=== PATIENT | male | born 1970 | race Caucasian/White ===

== ENCOUNTER 2018-07-27 07:10 | Day surgery (SDC) | payer BC ==
--- NOTE | 2018-07-20 22:59 | HP ---
CC: FORTUNATO Pires * HISTORY AND PHYSICAL: DATE OF PLANNED ADMISSION AND SURGERY: 07/27/18 HISTORY OF PRESENT ILLNESS: Mr. Hoang is a 48-year-old white male, who is admitted with a large symptomatic right hydrocele for surgical repair. Mr. Hoang noted right scrotal swelling for the last several years. More recently, it has become larger and was interfering with his physical activities. He was evaluated by Ms. Burns, who referred him for evaluation. He had a scrotal ultrasound, which showed a large right hydrocele and a small left hydrocele. Recently, he became significantly more symptomatic and with the hydrocele becoming larger and interfering with his physical activities. Reexamination in the office showed that the hydrocele has gotten larger and has become more tense. The patient wanted to proceed with surgical repair. PAST MEDICAL HISTORY AND SYSTEM REVIEW: He is in excellent health. There is no history of any inguinal or scrotal trauma or surgery. MEDICATIONS: He is on no chronic medications. ALLERGIES: He denies any allergies to medications. PHYSICAL EXAMINATION GENERAL: Pleasant and healthy-looking white male. VITAL SIGNS: Blood pressure 120/70, pulse of 70. LUNGS: Clear. HEART: Regular and rhythmic. No murmurs. ABDOMEN: Soft. No masses, no tenderness, and no CVA tenderness. EXTERNAL GENITALIA: He is circumcised. There are no penile lesions. The left testis feels normal. No left inguinal hernias noted. There is a 13- to 15-cm tense tender right hydrocele that is extending into the inguinal area. There is no associated inguinal hernia noted. IMPRESSION: Symptomatic right hydrocele. PLAN: Right hydrocelectomy. I discussed the operation in detail with the patient. Some of the potential complications including infection and hematoma were discussed. The patient understands that it is common to have several weeks of scrotal swelling following the surgery. All his questions were answered. [id number]/[facility] #: [id number] JOHANNY
[~2018-07-27 07:10] MED LIST: Buffered Lidocaine 0.9% SYRIN* 5 ML/SYR SYRINGE INTRADERM ONE; Lactated Ringers 1000 ML Bag* 1,000 ML IV SCH; Sodium Citrate/Citric Acid* 15 ML UDC PO ONE
[2018-07-27] MEDS ORDERED: Sodium Citrate/Citric Acid* 15 ML UDC ONE (08:01)
[2018-07-27] MEDS ORDERED: ceFAZolin 2 GM PREMIX in ORs 2 GM/50 ML BAG IVPB ONE (08:02)
[2018-07-27] MEDS ORDERED: Bupivacaine 0.5%* 50 ML VIAL ONE (09:14)
[2018-07-27] MEDS ORDERED: Midazolam* 1 MG/ML 2 ML VIAL (2 MG) ONE (09:30)
[2018-07-27] MEDS ORDERED: fentaNYL* 50 MCG/ML 2 ML VIAL (100 MCG VIAL) ONE ×2 (09:30→11:09)
[2018-07-27] MEDS ORDERED: Propofol* 10 MG/ML 20 ML BTL ONE (09:31)
[2018-07-27] MEDS ORDERED: Lidocaine 2% PF * 5 ML VIAL ONE (09:31)
[2018-07-27] MEDS ORDERED: Ondansetron INJ* 2 MG/ML VIAL IV PRN (10:02)
[2018-07-27] MEDS ORDERED: Naloxone* 0.4 MG/ML 1 ML VIAL IV PRN (10:02)
[2018-07-27] MEDS ORDERED: Ketorolac INJ* 30 MG/ML 1 ML VIAL IV PRN (10:02)
[2018-07-27] MEDS ORDERED: Ketorolac INJ* 30 MG/ML 1 ML VIAL ONE (11:09)
[2018-07-27] MEDS: fentaNYL* 50 MCG/ML 2 ML VIAL (100 MCG VIAL) IV PRN ×2 (11:13→11:42)
[2018-07-27] MEDS ORDERED: oxyCODONE/Acetamin 5/325 MG* TAB ONE (11:45)
--- NOTE | 2018-07-27 12:08 | OP ---
CC: FORTUNATO Pires* OPERATIVE REPORT: DATE OF OPERATION: 07/27/18 - [facility] DATE OF : 74 SURGEON: Thomas Nice MD ANESTHESIOLOGIST: Dr. Shahriar Dumont. ANESTHESIA: General. PRE-OP DIAGNOSIS: Right hydrocele. POST-OP DIAGNOSIS: Right hydrocele. OPERATIVE PROCEDURE: Right hydrocelectomy. INDICATION FOR PROCEDURE: Mr. Hoang is a 48-year-old white male, who noted progressive right scrotal swelling over the last several years. Recently, the hydrocele became symptomatic and interfering with his physical activities. After discussing the options of management, the patient decided to proceed with surgical repair. PATHOLOGY: After scrotal exploration, there was a hydrocele measuring about 12 cm in diameter. It contained about 150 cc of straw-colored hydrocele fluid. The hydrocele sac looked otherwise normal without any lesions. The testicle looked and felt normal without any masses. There was no hernia noted. DESCRIPTION OF PROCEDURE: After successful general anesthesia, the patient was placed in the supine position and was prepped and draped for scrotal surgery. A transverse incision was carried over the anterior mid right hemiscrotum and was deepened through the dartos muscle. The hydrocele sac was then dissected from the overlying scrotal wall and was delivered through the incision. The hydrocele sac was then opened and the fluid was drained. The testis was inspected. The hydrocele sac was partially trimmed. The sac was then everted and approximated to itself using a running locking sutures of 4-0 Vicryl achieving very good hemostasis. Additional hemostasis was carried. The testis was then placed within the scrotal cavity. The cavity was irrigated with saline. A Lawrence drain was left in the scrotal cavity and brought out through a separate stab wound incision in the dependent part of the scrotum . After making sure there was very good hemostasis, the scrotal incision was closed using running 4-0 Vicryl for the dartos muscle and interrupted 4-0 chromic suture for the skin. A total of 8 cc of 0.5% Marcaine without epinephrine was used to infiltrate the incision for postoperative analgesia. The Lawrence drain was transfixed to the skin with a Prolene suture. The patient tolerated the procedure well and left the operating room in good condition. The blood loss was negligible. The specimen was portion of hydrocele sac. All the counts were correct. [id number]/[facility] #: [id number] MTDD
[2018-07-27 12:37] VITALS: BP 110/84
== END 2018-07-27 13:40 | disposition home or self-care (01) ==
LOC: OR 07:10
PROVIDERS: ATTEND Urology
DX: N43.3 Hydrocele, unspecified (principal)
CPT/HCPCS: 88302; A9270-GY; J0690; J1885; J2250; J2704; J3010